=== PATIENT | male | born 1950 | race Caucasian/White ===

== ENCOUNTER 2020-01-05 07:25 | Inpatient (IN) ==
--- NOTE | 2019-12-17 16:31 | PAT Medication Instructions ---
Medication Instructions Date of Service December 17, 2019 Home Medications aspirin [Aspir-81] 81 mg PO HS atorvastatin 80 mg PO PM gabapentin 600 mg PO HS ibuprofen [Advil] 400 mg PO Q6H PRN multivitamin 1 tab PO QPM omeprazole 20 mg PO QAM prednisone 7 mg PO QAM ramipril 5 mg PO QAM tamsulosin 0.8 mg PO HS ASK your surgeon for instructions ibuprofen [Advil] 400 mg PO Q6H PRN ASK your prescriber and surgeon aspirin [Aspir-81] 81 mg PO HS DO NOT take the morning of surgery multivitamin 1 tab PO QPM ramipril 5 mg PO QAM Take morning of surgery With a small sip of water, OTHERWISE NOTHING TO EAT OR DRINK AFTER MIDNIGHT: omeprazole 20 mg PO QAM prednisone 7 mg PO QAM Take evening before surgery atorvastatin 80 mg PO PM gabapentin 600 mg PO HS multivitamin 1 tab PO QPM tamsulosin 0.8 mg PO HS Other Notes If you have any questions please call us at [phone] or [phone] or [phone] or [phone]
--- NOTE | 2019-12-18 11:18 | Anesthesiology Consultation ---
Date of Service December 18, 2019 Assessment & Plan (1) Encounter for pre-operative examination: Chart Review Chart Review: Pending: Refer to Additional Notes / Consult section (PCP and cardio clearances and Covid testing) and Patient seen in Pre Admission Testing Pending PCP (12/21) and cardio (12/28) clearance appointments. Per PAT appt 12/18/19, pt resides in [facility]. [facility] Wears mask and uses precautions. Educated patient to follow up with surgeon's office regarding Covid testing. Educated on importance of self quarantining, social distancing and wearing mask in public both for herself and household contacts. Teaching & Discussion Pre-Anesthesia Teaching/Discussion Notes: Instructed NPO after midnight before surgery,except medications with 15 cc of water. Medication instructions provided according to the [facility] guidelines. History Surgery Operation Date: 01/05/20 12:05 Proposed Procedures p T12-L1 Decompression, T11-L1 Fusion, L1-L4 Possible Hardware Removal, Spinal Cord Monitoring - Albert Alston DO Height/Weight Height: 5 ft 10 in Weight: 98.5 kg Allergies Allergy/AdvReac Type Severity Reaction Status Date / Time morphine Allergy Unknown NAUSEA Verified 12/16/19 15:08 metoprolol AdvReac Unknown LOW HEART Verified 12/16/19 15:08 RATE Medications Home Medications Medication Instructions Recorded Confirmed Last Taken aspirin [Aspir-81] 81 mg PO HS 12/16/19 12/16/19 Unknown atorvastatin 80 mg PO PM 12/16/19 12/16/19 Unknown gabapentin 600 mg PO HS 12/16/19 12/16/19 Unknown ibuprofen [Advil] 400 mg PO Q6H PRN 12/16/19 12/16/19 Unknown multivitamin 1 tab PO QPM 12/16/19 12/16/19 Unknown omeprazole 20 mg PO QAM 12/16/19 12/16/19 Unknown prednisone 7 mg PO QAM 12/16/19 12/16/19 Unknown ramipril 5 mg PO QAM 12/16/19 12/16/19 Unknown tamsulosin 0.8 mg PO HS 12/16/19 12/16/19 Unknown Past Medical History Medical History CAD (coronary artery disease) S/p two ANTONIO to LAD 2002 PTCA to D1 branch in 2002 Chronic back pain TO LOWER BACK Chronic steroid use Enlarged prostate GERD (gastroesophageal reflux disease) CONTROLLED AND STABLE Hiatal hernia Hyperlipidemia Hypertension Kidney stones NO CURRENT ISSUES Myocardial Infarction 04/2003 PMR (polymyalgia rheumatica) DX'D 2014 PREDISONE DAILY- FOLLOWS WITH RHEUM- DOES HAVE PAIN FLARES - INCREASES STEROID PRN Exercise / Class Metabolic Activity II 4-5 Yardwork/Stairs/Walk up hill (ONE FLIGHT STAIRS- NO CHEST PAIN OR SOB) Past Family History Family History Grandmother (Maternal) Family history of diabetes mellitus Aunt No problems noted. Uncle Family history of diabetes mellitus Past Surgical History Surgical History Back pain with history of spinal surgery X 6 INCLUDING METAL IMPLANTS H/O cervical spine surgery H/O knee surgery RIGHT History of cardiac cath 04/2003 MARLO BARBOZA 2 STENTS PLACED History of carpal tunnel release R/L History of colonoscopy History of cystoscopy WITH STENT X 2 History of esophagogastroduodenoscopy (EGD) Nausea and vomiting after administration of anesthetic agent Past Anesthesia History No Hx of Anesthesia Complications (BESIDES PONV) and No Family Hx of Anesthesia Complications History of PONV No Hx of Motion Sickness and History of PONV Social History Smoking Status: Never smoker Do You Dip or Chew Tobacco: No Hx Alcohol Use: Yes Alcohol type: beer Alcohol Intake Frequency Comment: RARELY Hx Substance Use: No Review of Systems Patient denies chest pain, shortness of breath, dyspnea on exertion, cough, wheezing, palpitations. No hx of seizures, stroke, apnea/snoring. No hx of blood clots or blood transfusions Physical Exam Vital Signs VITALS BP 144/87 P 69 TEMP 98.6 SP02 96% RESP 16 Constitutional no acute distress ENMT Mouth: no TMJ clicking Thyromental Distance: > or= 3.5 Finger Breadths (3.5) Mallampati Class: III Denies missing or loose teeth Neck + limited neck extension (mild ) Respiratory normal respiratory effort; no respiratory distress Auscultation: lungs clear to auscultation bilaterally; no wheezes Cardiovascular Rate/Rhythm: regular rate and regular rhythm Heart Sounds: no murmur Vessels: no carotid bruit Musculoskeletal Spine: no pain with cervical ROM Neurologic moves all extremities Psychiatric Orientation: alert Testing Laboratory Results 12/18/19 11:58 12/18/19 11:58 PT 10.9 Seconds (9.0-12.0) 12/18/19 11:58 INR 1.0 (0.9-1.1) 12/18/19 11:58 APTT 26.9 Seconds (21.0-31.0) 12/18/19 11:58 Urine Color Yellow 12/18/19 Unknown Urine Appearance Clear (Clear) 12/18/19 Unknown Urine pH 6.5 (4.5-7.5) 12/18/19 Unknown Ur Specific [place] 1.022 (1.000-1.030) 12/18/19 Unknown Urine Protein Negative (Negative) 12/18/19 Unknown Urine Glucose (UA) Negative (Negative) 12/18/19 Unknown Urine Ketones Negative (Negative) 12/18/19 Unknown Urine Nitrite Negative (Negative) 12/18/19 Unknown Ur Leukocyte Esterase Negative (Negative) 12/18/19 Unknown Blood Type O Positive 12/18/19 11:58 Antibody Screen NEGATIVE 12/18/19 11:58 Electrocardiogram Date: 12/18/19 Findings: + NSR @ (61) Chest X-Ray Date: 12/18/19 Findings: + NAD Left coronary artery stents are noted. Cardiac Catheterization Date: 05/25/03 LM= normal LAD= 30-80% stenosis D1 ostial= 70-80% stenosis Cx= 30% RCA= 20-30% EF= 55%. No MR or . Successful PTCA and stent x 2 to mid/mid distal portion of LAD Successful PTCA of ostial portion of the the first diagonal branch.
[2019-12-18 12:21] LABS: Basophils # (auto) 0.02 K/uL (0-0.2); Basophils % (auto) 0.2 %; Eosinophils # (auto) 0.07 K/uL (0-0.5); Eosinophils % (auto) 0.7 %; Hematocrit (blood only) 42.6 % (42-52); Hemoglobin 14.6 g/dL (14.0-18.0); Immature Granulocytes # (auto) 0.01 K/uL (0.00-0.02); Immature Granulocytes % (auto) 0.1 %; Lymphocytes # (auto) 0.99 K/uL (1.2-3.4); Lymphocytes % (auto) 9.9 %; Mean Corpuscular Hemoglobin 32.4 pg (25-34); Mean Corpuscular Hgb Conc 34.3 g/dL (32-36); Mean Corpuscular Volume 94.7 fL (80-100); Mean Platelet Volume 8.7 fL (7.4-10.4); Monocytes # (auto) 0.82 K/uL (0.11-0.59); Monocytes % (auto) 8.2 %; Neutrophils # (auto) 8.06 K/uL (1.4-6.5); Neutrophils % (auto) 80.9 %; Platelet Count 186 K/uL (130-400); RDW Coefficient of Variation 12.8 % (11.5-14.5); RDW Standard Deviation 44.2 fL (36.4-46.3); White Blood Count 9.97 K/uL (4.8-10.8)
[2019-12-18 12:26] LABS: Appearance Urine Clear (Clear); Bilirubin Urine Negative (Negative); Blood Urine Negative (Negative); Color Urine Yellow; Glucose Urine UA Negative (Negative); Ketones Urine Negative (Negative); Leukocyte Esterase Urine Negative (Negative); Nitrite Urine Negative (Negative); Protein Urine Negative (Negative); Specific Gravity Urine 1.022 (1.000-1.030); Urobilinogen Urine Negative (Negative); pH Urine 6.5 (4.5-7.5)
[2019-12-18 12:30] LABS: Partial Thromboplastin Time 26.9 Seconds (21.0-31.0); Prothrombin Time 10.9 Seconds (9.0-12.0)
--- NOTE | 2019-12-18 12:40 | XRay Report ---
XR chest Pre-admission PA/Lat HISTORY: Preop. COMPARISON: Chest 11/06/2014. FINDINGS: The lungs are clear. Cardiac silhouette is normal in size. No pleural effusions. No pneumot horax. Posterior fusion hardware within the lumbar spine. Left coronary artery stents are noted. IMPRESSION: No acute process. ACT 112: Negative or not required by law. Electronically signed by: Eugenio Sheth M.D. 12/18/2019 12:39 PM
[2019-12-18 15:29] LABS: BUN Creatinine Ratio 19.7 (10-20); Calcium 9.4 mg/dl (8.5-10.1); Est GFR (African American) 88.6; Est GFR (Non-African American) 76.5; Potassium 4.1 mmol/L (3.5-5.1)
--- NOTE | 2019-12-18 22:01 | Electrocardiogram Report ---
Test Reason : Blood Pressure : / mmHG Vent. Rate : 061 BPM Atrial Rate : 061 BPM P-R Int : 166 ms QRS Dur : 100 ms QT Int : 420 ms P-R-T Axes : 060 -11 042 degrees QTc Int : 422 ms Normal sinus rhythm Normal ECG No previous ECGs available Confirmed by Kalpesh Gardiner ([id number]) on 12/18/2019 10:00:33 PM Referred By: Alebrt Alston Confirmed By:Kalpesh Gardiner
[~2020-01-05 07:25] MED LIST: ACETAMINOPHEN 1000 MG/100 ML IV IV ONE; ACETAMINOPHEN 500 MG TAB PO SCH; CEFAZOLIN 2000MG 2,000 MG/15 ML SYR IV SCH; CeleBREX 200 MG CAP PO SCH; GABAPENTIN 300 MG CAP PO SCH; LR 15ML/HR IV SCH
[2020-01-05] MEDS ORDERED: LIDOCAINE HCL 2% 2 ML VIAL/AMP(20MG/ML) INFIL ONE (08:18)
[2020-01-05] MEDS ORDERED: ONDANSETRON INJ 2 MG/ML 2 ML VIAL ONE (08:18)
[2020-01-05] MEDS ORDERED: DEXAMETHASONE SOD INJ 4 MG/ML VIAL ONE (08:18)
[2020-01-05] MEDS ORDERED: fentaNYL citrate 100 MCG/2 ML VIAL ONE (08:18)
[2020-01-05] MEDS ORDERED: PROPOFOL IV EMULSION 10 MG/ML 20 ML VIAL IV ONE (08:18)
[2020-01-05] MEDS ORDERED: ROCURONIUM BROMIDE 10 MG/ML 5 ML VIAL IV ONE (08:18)
[2020-01-05] MEDS ORDERED: ONDANSETRON INJ 2 MG/ML 2 ML VIAL IV PRN ×2 (08:31→13:55)
[2020-01-05] MEDS ORDERED: fentaNYL citrate 100 MCG/2 ML VIAL IV PRN (08:31)
[2020-01-05] MEDS ORDERED: ePHEDrine sulfate 50 MG/ML AMP IV PRN (08:31)
[2020-01-05] MEDS ORDERED: HYDROmorphone INJ 1 MG/ML SYRINGE IV PRN ×2 (08:31→13:55)
[2020-01-05] MEDS ORDERED: ATROPINE SULFATE 0.1 MG/ML 10ML SYR IV PRN (08:31)
[2020-01-05] MEDS ORDERED: SCOPOLAMINE 1.5 MG TDSY TD ONE ×2 (08:54→08:59)
--- NOTE | 2020-01-05 08:56 | History & Physical Bridge Note ---
Date of Service January 05, 2020 History & Physical Bridge Note I have examined the patient, reviewed the History & Physical and in the interval since the performance of the History & Physical I have noted the following changes of clinical significance: no changes noted
--- NOTE | 2020-01-05 08:57 | History & Physical Report ---
Date of Service January 05, 2020 Assessment & Plan (1) Lumbar stenosis with neurogenic claudication: T12-L1 decompression, T11-L1 fusion, L1-L4 possible hardware removal Present on Admission?: Yes History of Present Illness Chief Complaint: Back and by leg pain Primary Care Provider: Td Banks MD This is a 6-year-old male who presents with marked decline with back and leg symptoms. After failing extensive course of nonoperative care is here for surgical invention. Allergies Allergy/AdvReac Type Severity Reaction Status Date / Time morphine Allergy Unknown NAUSEA Verified 01/05/20 08:09 metoprolol AdvReac Unknown LOW HEART Verified 01/05/20 08:09 RATE Home Medications Home Medications Medication Instructions Recorded Confirmed Type aspirin [Aspir-81] 81 mg PO HS 12/16/19 01/05/20 History atorvastatin 80 mg PO PM 12/16/19 01/05/20 History gabapentin 600 mg PO HS 12/16/19 01/05/20 History ibuprofen [Advil] 400 mg PO Q6H PRN 12/16/19 01/05/20 History multivitamin 1 tab PO QPM 12/16/19 01/05/20 History omeprazole 20 mg PO QAM 12/16/19 01/05/20 History prednisone 7 mg PO QAM 12/16/19 01/05/20 History ramipril 5 mg PO QAM 12/16/19 01/05/20 History tamsulosin 0.8 mg PO HS 12/16/19 01/05/20 History Past Med/Surg History Medical History CAD (coronary artery disease) S/p two ANTONIO to LAD 2002 PTCA to D1 branch in 2002 Chronic back pain TO LOWER BACK Chronic steroid use Enlarged prostate GERD (gastroesophageal reflux disease) CONTROLLED AND STABLE Hiatal hernia Hyperlipidemia Hypertension Kidney stones NO CURRENT ISSUES Myocardial Infarction 04/2003 PMR (polymyalgia rheumatica) DX'D 2014 PREDISONE DAILY- FOLLOWS WITH RHEUM- DOES HAVE PAIN FLARES - INCREASES STEROID PRN Surgical History Back pain with history of spinal surgery X 6 INCLUDING METAL IMPLANTS H/O cervical spine surgery H/O knee surgery RIGHT History of cardiac cath 04/2003 MARLO BARBOZA 2 STENTS PLACED History of carpal tunnel release R/L History of colonoscopy History of cystoscopy WITH STENT X 2 History of esophagogastroduodenoscopy (EGD) Nausea and vomiting after administration of anesthetic agent Family History Grandmother (Maternal) Family history of diabetes mellitus Aunt No problems noted. Uncle Family history of diabetes mellitus Social History Preferred Language: Lao Communication Ability: Effective Thai Masseur Required: No Beliefs That Will Affect Care: None Current Living Situation: Spouse Other Information That Helps Us Care for You: No Feels Safe at Home: Yes Safety Concerns: Feels Safe At This Time Smoking Status: Never smoker Do You Dip or Chew Tobacco: No ; Second Hand Exposure: No ; Hx Alcohol Use: Yes Alcohol type: beer Hx Substance Use: No Physical Exam Physical Exam: Patient is alert and oriented neurologically intact. Heart regular rate and rhythm. Lungs clear to auscultation Results & Data Vital Signs (Past 12 Hours) Vital Signs Temp Pulse Resp BP Pulse Ox 01/05/20 08:28 36.8 C 52 L 20 134/82 96
[2020-01-05] MEDS ORDERED: BUPIVACAINE/EPINEPHRINE 0.25% 1:200,000 30 ML VIAL ONE (09:02)
[2020-01-05] MEDS ORDERED: BACITRACIN INJ 50,000 UNIT VIAL ONE (09:02)
[2020-01-05] MEDS ORDERED: HYDROCORTISONE SOD SUCCINATE 100 MG/2 ML VIAL ONE (09:47)
[2020-01-05] MEDS ORDERED: FLOSEAL HEMOSTATIC MATRIX 10ML TOP ONE (10:17)
[2020-01-05] MEDS ORDERED: HYDROmorphone INJ 2 MG/ML SYR/VIAL ONE (11:04)
[2020-01-05] MEDS ORDERED: ALBUMIN HUMAN 5% 12.5 GM/250 ML VIAL IV ONE (11:12)
--- NOTE | 2020-01-05 12:27 | Operative Report ---
Post Operative Report Pre & Post Diagnosis Operation Date: 01/05/20 09:05 Pre-Op Diagnosis: Thoracic spinal stenosis Post-Op Diagnosis: Thoracic spinal stenosis I identified the patient and participated in the time-out.: Yes Procedure Operation Date: 01/05/20 09:05 Actual Procedures #1 removal of posterior segmental instrumentation L1-L4. #2 exploration of fusion L1-L4. #3 decompression with bilateral medial facetectomies and foraminotomies T11-T12 and T12-L1. #4 posterior spinal fusion T10-L1. #5 placed a posterior segmental instrumentation from T10-L4. #6 interbody fusion T12-L1. #7 placement peek cage 8 x 26 mm at T12-L1. #8 placement locally harvested morselized autograft in the posterior lateral gutters. #9 placement infuse collagen sponge, master graft in the posterior lateral gutters and ostial amp and interbody space. Surgeon Albert Alston, DO Product Marketing Specialist Lissette Partida Estimated Blood Loss 950 Findings See Below The patient is 5 foot 10 weighing over 95 kg with a BMI in excess of 30. This combined with an EBL greater than 950 cc created significant technical difficulty adding at least 25% increase to the operative time. Specimens None Indications This is a 69-year-old male the presents with above-mentioned diagnosis after failing a course of nonoperative care is here for the above-mentioned procedure. Description of Procedure Patient was met with identified informed consent obtained. Patient was then taken to the operative suite underwent intubation placed in a prone position on the Oleg table on top of the Xavier frame. All bony prominences well-padded eyes inspected to ensure no external pressure placed upon them. This point the thoracolumbar spine was prepped and draped in normal sterile fashion. Sharp dissection with the assistance of Bovie cautery was performed down to and exposing the lamina and transverse processes of T10-T11 T12-L1 and the instrumentation L1 down to L4. I then proceeded move the hardware bilaterally at L1-L4 exploring the fusion mass noting it to be intact. And then performed a complete laminectomy of T10 12 and T11 from a caudal cephalad fashion including medial facetectomies and foraminotomies addressing severe spinal stenosis. Pedicle screws were then placed in [id number] L1-L2 and L4 bilaterally with assistance of fluoroscopy and appropriately sized umesh placed. By way of a transforaminal approach on the right a complete discectomy of T8 12 L1 was performed endplates curetted to subcortical bleeding bone and a 8 x 26 mm peek cage filled with osteo-bone graft tapped in position. The rods were then locked into final position bilaterally. The transverse processes of T10-T11 T12-L1 and L2 were burred to subcortical bleeding bone. Infuse collagen sponge master graft local autograft was placed in the posterior lateral gutters. 15 round JACOB drain inserted. The incision was then closed with 1 Vicryl the fascia 2-0 Vicryl subcutaneously and 4 Monocryl for final skin closure. Steri-Strip sterile dressings placed. Patient will continue PACU stable condition. Please note spinal cord monitoring was utilized that the procedure no changes noted. Lastly Lissette Partida was present at the entire procedure involved the patient positioning complex portions of the surgery and final skin closure. I attest to the content of the Intraoperative Record and any orders documented therein. Any exceptions are noted below.
--- NOTE | 2020-01-05 13:09 | Fluoroscopy Report ---
INTRAOPERATIVE RADIOGRAPHS CLINICAL HISTORY: Thoracolumbar spinal fusion. Fluoroscopy time: 32 seconds. FINDINGS: 6 spot fluoroscopic views of the lower thoracic and lumbar spine are presented. There is po stoperative change from extensive laminectomy and posterior fusion throughout the imaged thoracolumba r spine. Interpedicular screws are present at several levels. The orthopedic hardware appears intact. IMPRESSION: Intraoperative images from thoracolumbar spinal fusion as above. Electronically signed by: Aneglo Fan M.D. 01/05/2020 1:08 PM
[2020-01-05 13:21] LABS: Basophils # (auto) 0.01 K/uL (0-0.2); Basophils % (auto) 0.1 %; Hemoglobin 11.6 g/dL (14.0-18.0); Immature Granulocytes # (auto) 0.04 K/uL (0.00-0.02); Immature Granulocytes % (auto) 0.6 %; Lymphocytes # (auto) 0.54 K/uL (1.2-3.4); Lymphocytes % (auto) 7.6 %; Mean Corpuscular Hemoglobin 31.7 pg (25-34); Mean Corpuscular Volume 95.6 fL (80-100); Mean Platelet Volume 8.5 fL (7.4-10.4); Monocytes # (auto) 0.14 K/uL (0.11-0.59); Neutrophils # (auto) 6.34 K/uL (1.4-6.5); Neutrophils % (auto) 89.7 %; Platelet Count 145 K/uL (130-400); RDW Coefficient of Variation 12.8 % (11.5-14.5); RDW Standard Deviation 44.5 fL (36.4-46.3); Red Blood Count 3.66 M/uL (4.7-6.1); White Blood Count 7.07 K/uL (4.8-10.8)
[2020-01-05 13:26] LABS: Mean Corpuscular Hgb Conc 33.1 g/dL (32-36)
--- NOTE | 2020-01-05 13:29 | Anesthesiology Progress Note ---
Date of Service January 05, 2020 Anesthesia Post Procedure Vital Signs Vital Signs: Temp Pulse Pulse Resp BP Pulse Ox 01/05/20 13:10 60 13 142/65 H 98 01/05/20 13:00 67 14 141/80 H 98 01/05/20 12:50 36.7 C 72 16 150/89 H 97 01/05/20 08:28 36.8 C 52 L 20 134/82 96 Transfer of Care Handoff Completed per policy Notes Mental Status: alert / awake / arousable and participated in evaluation Patient Amnestic to Procedure: Yes Nausea / Vomiting: adequately controlled Pain: adequately controlled Airway Patency, RR, SpO2: stable & adequate BP & HR: stable & adequate Hydration State: stable & adequate Anesthetic Complications: no major complications apparent and Pt Satisfied with anesthetic care
[2020-01-05] MEDS ORDERED: DO NOT ADMINISTER PNEUMOCOCCAL VACCINE PRN (13:55)
[2020-01-05] MEDS ORDERED: bisacodyL 10 MG SUPP PR PRN (13:55)
[2020-01-05] MEDS ORDERED: ACETAMINOPHEN 500 MG TAB PO PRN (13:55)
[2020-01-05] MEDS ORDERED: LORazepam 0.5 MG TAB PO PRN (13:55)
[2020-01-05] MEDS ORDERED: PROMETHAZINE HCL 12.5 MG in SODIUM CHLORIDE 0.9% 50 ML IV PRN (13:55)
[2020-01-05] MEDS ORDERED: NALOXONE HCL 0.4 MG/1 ML VIAL/CARP IV PRN (13:55)
[2020-01-05] MEDS ORDERED: ONDANSETRON 4 MG OD TAB PO PRN (13:55)
[2020-01-05] MEDS ORDERED: OXYCODONE HCL IR 5 MG TAB (IMMEDIATE RELEASE) PO PRN (13:55)
[2020-01-05] MEDS ORDERED: FAMOTIDINE 20 MG TAB PO PRN (13:55)
[2020-01-05] MEDS ORDERED: SOD PHOSPHATE/SOD BIPHOSPHATE ENEMA 132 ML BTL PR PRN (13:55)
[2020-01-05] MEDS ORDERED: METOCLOPRAMIDE HCL INJ 5 MG/ML 2 ML VIAL IV PRN (13:55)
[2020-01-05] MEDS ORDERED: ALUMINUM/MAGNESIUM SUSP 30 ML UDC PO PRN (13:55)
[2020-01-05] MEDS ORDERED: HYDROmorphone INJ 0.5 MG/0.5 ML SYR IV PRN (13:55)
[2020-01-05] MEDS ORDERED: LORazepam 0.5 MG/1 ML VIAL IV PRN (13:55)
[2020-01-05] MEDS ORDERED: MAGNESIUM HYDROXIDE SUSP 30 ML UDC PO PRN (13:55)
[2020-01-05] MEDS ORDERED: DO NOT ADMINISTER FLU VACCINE PRN (13:55)
[2020-01-05] MEDS ORDERED: ACETAMINOPHEN 1,000 MG/100 ML VIAL IV PRN (13:55)
[2020-01-05] MEDS ORDERED: SODIUM CHLORIDE 0.9% 1000ML 1,000 ML IV SCH ×2 (14:25→22:00)
--- NOTE | 2020-01-05 15:32 | Consultation ---
Date of Consultation January 05, 2020 Assessment & Plan (1) Lumbar stenosis with neurogenic claudication: Status post T10-L1 decompression, T10-L4 fusion by Dr. Alston POD #0 EBL 950ml; JACOB Drain 210 ml tolerated procedure well Pain/wound/antiemetics management per orthopedics Activity and therapy as directed by Ortho Encourage incentive spirometry SCD/TEDS (2) Acute blood loss anemia: Preop H&H 14.6 and 42.6 EBL 950 mL; JACOB drain 210 mL Postoperative hemoglobin 11.6 and 35.0 Monitor H&H closely, already type and crossed transfuse hemoglobin < 8 (3) CAD (coronary artery disease): History of PCI with stent LAD x2 in 2002 Continue ASA, statin, LITO no chest pain/sob (4) PMR (polymyalgia rheumatica): Continue chronic prednisone 5 mg daily Did receive stress dose steroids preoperatively 100 mg of Solu-Cortef - discussed with anesthesia Dr. Miller (5) Hypertension: Blood pressure stable, continue LITO inhibitor (6) Hyperlipidemia: Continue statin (7) GERD (gastroesophageal reflux disease): Continue PPI (8) DVT prophylaxis: Per primary Follow-up: PCP Dr. Banks was upon discharge Pt was seen and examined in collaboration with Dr. Recio, please see addendum Thank you for this consultation. We will follow the patient with you during their hospital stay. You can reach a member of the [facility] Hospitalist Team 15/01 via pager @ [phone]. Supervising Physician Co-Signing Physician Notes I, Dr. Curly Recio, have seen and examined the patient with physician hair assistant and would like to comment that On PHYSICAL exam: General: no acute distress Lungs: on room air, normal respiratory effort Heart: regular heart rate Abdomen: soft, nontender, positive bowel sounds Back: presence of JACOB drain with blood Extremities: able to wiggle the toes bilaterally ASSESSMENT AND PLAN -This is a patient of orthopedics Dr. Alston and is status post spinal surgery for diagnosis of Thoracic spinal stenosis (#1 removal of posterior segmental instrumentation L1-L4. #2 exploration of fusion L1-L4. #3 decompression with bilateral medial facetectomies and foraminotomies T11-T12 and T12-L1. #4 posterior spinal fusion T10-L1. #5 placed a posterior segmental instrumentation from T10-L4. #6 interbody fusion T12-L1. #7 placement peek cage 8 x 26 mm at T12-L1. #8 placement locally harvested morselized autograft in the posterior lateral gutters. #9 placement infuse collagen sponge, master graft in the posterior lateral gutters and ostial amp and interbody space.) -monitor acute blood loss anemia post-operatively because of Estimated Blood Loss greater than 950 cc -post-op Hgb 11.6 patient on IV fluids, continue for now and can consider monitoring off IV fluids at night -continue galindo -will need PT/OT assessments -defer to general surgery on management of JACOB drain -agree with assessment and plan as documented by physician hair assistant History of Present Illness Requesting Physician: Dr. Alston Reason for Consultation: Postop medical management Attending Physician: Albert Alston, History of Present Illness This is a 69-year-old male who has significant PMH of CAD with history of angioplasty to LAD in 2002, HTN, HLD, PMR on chronic steroid, BPH, GERD, gout, history of pseudomembranous colitis who presents to [facility] for elective thoracolumbar surgery by Dr. Alston. We have been consulted for medical management. Patient underwent T10 L1 decompression and T10 L4 fusion. He tolerated the procedure well. Overall feels, "tired," and dizzy. He denies feeling presyncopal, lightheaded, headache, change in vision/hearing, chest pain, shortness breath, cough, nausea, vomiting, abdominal pain. He denies any incisional back pain or radicular symptoms. He does have Galindo catheter in place. He tolerated clear liquid diet for lunch. Offers no acute concerns. Discussed with nursing staff and anesthesia and was confirmed the patient did receive Solu-Cortef 100 mg preoperatively due to steroid dependence. From a cardiac standpoint is CAD with prior stents PCI is stable. Seen and evaluated by cardiology on 12/29/2019. Hypertension well-controlled on ramipril. He is on high-dose atorvastatin for his hyperlipidemia. He does have PMR which he takes for 5 mg of prednisone daily. He follows with [facility] rheumatology. Recently had been on 7-1/2 mg daily, but is now down to 5 mg daily. He did take prednisone 5 mg this morning. Allergies Allergy/AdvReac Type Severity Reaction Status Date / Time morphine Allergy Unknown NAUSEA Verified 01/05/20 08:09 metoprolol AdvReac Unknown LOW HEART Verified 01/05/20 08:09 RATE Home Medications Home Medications Medication Instructions Recorded Confirmed Type aspirin [Aspir-81] 81 mg PO HS 12/16/19 01/05/20 History atorvastatin 80 mg PO PM 12/16/19 01/05/20 History gabapentin 600 mg PO HS 12/16/19 01/05/20 History ibuprofen [Advil] 400 mg PO Q6H PRN 12/16/19 01/05/20 History multivitamin 1 tab PO QPM 12/16/19 01/05/20 History omeprazole 20 mg PO QAM 12/16/19 01/05/20 History ramipril 5 mg PO QAM 12/16/19 01/05/20 History tamsulosin 0.8 mg PO HS 12/16/19 01/05/20 History prednisone 5 mg PO DAILY 01/05/20 01/05/20 History Patient History Medical History CAD (coronary artery disease) S/p two ANTONIO to LAD 2002 PTCA to D1 branch in 2002 Chronic back pain TO LOWER BACK Chronic steroid use Enlarged prostate GERD (gastroesophageal reflux disease) CONTROLLED AND STABLE Hiatal hernia Hyperlipidemia Hypertension Kidney stones NO CURRENT ISSUES Myocardial Infarction 04/2003 PMR (polymyalgia rheumatica) DX'D 2014 PREDISONE DAILY- FOLLOWS WITH RHEUM- DOES HAVE PAIN FLARES - INCREASES STEROID PRN Surgical History Back pain with history of spinal surgery X 6 INCLUDING METAL IMPLANTS H/O cervical spine surgery H/O knee surgery RIGHT History of cardiac cath 04/2003 MARLO BARBOZA 2 STENTS PLACED History of carpal tunnel release R/L History of colonoscopy History of cystoscopy WITH STENT X 2 History of esophagogastroduodenoscopy (EGD) Nausea and vomiting after administration of anesthetic agent Family History (Updated 01/05/20 @ 15:44 by Mecca Alanis PA-C) Grandmother (Maternal) Family history of diabetes mellitus Uncle Family history of diabetes mellitus Father Heart disease, Onset Age: 79 Mother Alzheimer disease Brother Heart disease, Onset Age: 59 Social History (Updated 01/05/20 @ 15:45 by Mecca Alanis PA-C) Preferred Language: [place]ese Communication Ability: Effective Disaster Recovery Specialist Required: No Beliefs That Will Affect Care: None Current Living Situation: Spouse Other Information That Helps Us Care for You: No Feels Safe at Home: Yes Safety Concerns: Feels Safe At This Time Smoking Status: Former smoker Do You Dip or Chew Tobacco: No ; Number of Years Since Quit: 35 ; Second Hand Exposure: No ; Hx Alcohol Use: No Hx Substance Use: No Review of Systems Review of Systems: All systems reviewed & are unremarkable except as noted in HPI & below Physical Exam Physical Exam: Constitutional: WD/WN, vitals as above, NAD, sitting up in bed, pleasant, conversing easily Head: Normocephalic, Atraumatic Eyes: PERRL, conjunctivae normal, anicteric sclerae ENMT: external ear and nose normal, oropharynx normal Neck: trachea midline, no thyromegaly normal visual inspection Respiratory: normal respiratory effort, lungs clear to auscultation, no wheeze, rales, rhonchi. Normal insp/exp effort, no accessory muscle use Cardiovascular: RRR, no murmur, no edema Vessels: no JVD or carotid bruit Chest: normal inspection of chest Abdomen: normal bowel sounds, soft, nontender, no hepatosplenomegaly Musculoskeletal: no cyanosis or clubbing, active range of motion to extremities x4, bilateral upper extremities 5/5, lumbar dressing CDI, JACOB drain with serosanguineous drainage, NVI distally Skin: no rashes, warm and dry normal turgor Neurologic: PERRL, EOMI, accommodation nl, no face palsy, no dysarthria CN's II-XI intact bilaterally and moves all extremities Psychiatric: A+Ox3, euthymic affect Lymphatic: no cervical or axillary lymphadenopathy : Galindo catheter in place draining clear yellow urine Results & Data ([facility]) Vital Signs (Past 12 Hours) Vital Signs Temp Pulse Pulse Resp BP BP Pulse Ox 01/05/20 14:57 36.4 C L 75 17 132/84 93 01/05/20 14:25 36.4 C L 72 16 136/83 97 01/05/20 13:50 36.5 C 62 16 143/79 H 100 01/05/20 13:30 58 L 12 129/76 97 01/05/20 13:20 36.4 C L 63 12 136/72 98 01/05/20 13:10 60 13 142/65 H 98 01/05/20 13:00 67 14 141/80 H 98 01/05/20 12:50 36.7 C 72 16 150/89 H 97 01/05/20 08:28 36.8 C 52 L 20 134/82 96 Laboratory Results Short CBC 01/05/20 Range/Units 13:10 WBC 7.07 (4.8-10.8) K/uL Hgb 11.6 L (14.0-18.0) g/dL Hct 35.0 L (42-52) % Plt Count 145 (130-400) K/uL Preoperative lab work on 12/18/2019 WBC 9.97, H&H 14.6 and 42.6, platelet 186 BUN 20, creatinine 1.00, sodium 4.1 Urine negative Diagnostic Findings CXR: IMPRESSION: No acute process. Lumbar Spine Xray: IMPRESSION: Intraoperative images from thoracolumbar spinal fusion as above. Medications Administered Acetaminophen (Tylenol) 1,000 mg PO PREOP CORTES Stop: 01/05/20 18:00 Last Admin: 01/05/20 08:26 Dose: 1,000 mg Documented by: [id number] Celecoxib (Celebrex) 200 mg PO PREOP CORTES Stop: 01/05/20 18:00 Last Admin: 01/05/20 08:26 Dose: 200 mg Documented by: [id number] Gabapentin (Neurontin) 300 mg PO PREOP CORTES Stop: 01/05/20 18:00 Last Admin: 01/05/20 08:26 Dose: 300 mg Documented by: [id number] Lactated Ringer's (Lr) 1,000 mls @ 15 mls/hr IV .Q24H CORTES Stop: 01/06/20 05:59 Last Infusion: 01/05/20 09:29 Dose: 0 mls/hr Documented by: [id number] Admin: 01/05/20 08:25 Dose: 15 mls/hr Documented by: [id number] Cefazolin Sodium (Ancef 2000mg) 2,000 mg in 15 mls @ 3.75 mls/min IV PREOP CORTES; Protocol Stop: 01/05/20 18:00 Last Admin: 01/05/20 09:29 Dose: 3.75 mls/min Documented by: [id number] Sodium Chloride (Nss 1000ml) 1,000 mls @ 150 mls/hr IV .Q6H40M CORTES Stop: 01/05/20 21:04 Last Admin: 01/05/20 14:38 Dose: 150 mls/hr Documented by: [id number] Discontinued Medications Bacitracin (Bacitracin) Confirm Administered Dose 50,000 units .ROUTE .STK-MED ONE Stop: 01/05/20 09:03 Last Admin: 01/05/20 10:18 Dose: 50,000 units Documented by: [id number] Bupivacaine HCl/Epinephrine Bitart (Bupivacaine 0.25%-Epi [id number]) Confirm Administered Dose 30 ml .ROUTE .STK-MED ONE Stop: 01/05/20 09:03 Last Admin: 01/05/20 10:18 Dose: 30 ml Documented by: [id number] Miscellaneous (Floseal Hemostatic Matrix 10ml) 10 ml TOP ONCE ONE Stop: 01/05/20 10:18 Last Admin: 01/05/20 12:30 Dose: 40 ml Documented by: [id number] Scopolamine (Transderm-Scop) 1.5 mg TD ONE ONE Stop: 01/05/20 08:55 Last Admin: 01/05/20 09:01 Dose: 1.5 mg Documented by: [id number] Scopolamine (Transderm-Scop) Confirm Administered Dose 1.5 mg TD .STK-MED ONE Stop: 01/05/20 09:00 Last Admin: 01/05/20 14:32 Dose: Not Given Documented by: [id number] ECG Rate (beats per minute): 61 Rhythm: normal sinus
[2020-01-05] MEDS: TRAMADOL HCL 50 MG TABLET PO PRN (17:33)
[2020-01-05] MEDS: CEFAZOLIN 2000MG 2,000 MG/15 ML SYR IV SCH (17:34)
[2020-01-05] MEDS: CHECK SCOPOLAMINE PATCH PLACEMENT SCH (17:34)
[2020-01-05] MEDS: ATORVASTATIN 40 MG TAB PO SCH (21:20)
[2020-01-05] MEDS: DOCUSATE SODIUM/SENNA 50/8.6MG TAB PO SCH (21:21)
[2020-01-05] MEDS: MULTIVITAMIN TAB PO SCH (21:21)
[2020-01-05] MEDS: ASPIRIN 81 MG ECTAB PO SCH (21:21)
[2020-01-05] MEDS: TAMSULOSIN HCL 0.4 MG CAP PO SCH (21:21)
[2020-01-05] MEDS: GABAPENTIN 600 MG TAB PO SCH (21:21)
[2020-01-06] MEDS: CEFAZOLIN 2000MG 2,000 MG/15 ML SYR IV SCH (01:17)
[2020-01-06] MEDS: CHECK SCOPOLAMINE PATCH PLACEMENT SCH ×4 (01:17→23:40)
[2020-01-06] MEDS: POLYETHYLENE (MIRALAX) 17 GM PACK PO SCH ×4 (04:51→23:40)
[2020-01-06] MEDS: TRAMADOL HCL 50 MG TABLET PO PRN (04:53)
[2020-01-06 05:04] LABS: Basophils # (auto) 0.01 K/uL (0-0.2); Basophils % (auto) 0.1 %; Eosinophils # (auto) 0.08 K/uL (0-0.5); Eosinophils % (auto) 0.9 %; Hematocrit (blood only) 29.5 % (42-52); Immature Granulocytes # (auto) 0.02 K/uL (0.00-0.02); Immature Granulocytes % (auto) 0.2 %; Lymphocytes # (auto) 1.12 K/uL (1.2-3.4); Mean Corpuscular Hemoglobin 32.5 pg (25-34); Mean Corpuscular Hgb Conc 33.9 g/dL (32-36); Mean Corpuscular Volume 95.8 fL (80-100); Mean Platelet Volume 8.1 fL (7.4-10.4); Monocytes # (auto) 0.92 K/uL (0.11-0.59); Monocytes % (auto) 10.7 %; Neutrophils # (auto) 6.46 K/uL (1.4-6.5); Neutrophils % (auto) 75.1 %; Platelet Count 139 K/uL (130-400); RDW Coefficient of Variation 12.8 % (11.5-14.5); RDW Standard Deviation 44.6 fL (36.4-46.3); Red Blood Count 3.08 M/uL (4.7-6.1); White Blood Count 8.61 K/uL (4.8-10.8)
[2020-01-06 05:36] LABS: Calcium 7.9 mg/dl (8.5-10.1); Creatinine Clr Calc Pharmacy 102.1 ml/min; Est GFR (Non-African American) 91.5; Potassium 3.9 mmol/L (3.5-5.1)
[2020-01-06] MEDS: ENALAPRIL MALEATE 10 MG TAB PO SCH (08:17)
[2020-01-06] MEDS: PANTOprazole 40 MG TAB PO SCH (08:17)
--- NOTE | 2020-01-06 08:25 | Orthopedic Progress Note ---
Date of Service January 06, 2020 Assessment & Plan (1) Lumbar stenosis with neurogenic claudication: At this time we will continue physical therapy advance his bowel regimen anticipate discharge home in the next few days. Present on Admission?: Yes Admission and Anticipated Discharge Date Admission Date: January 05, 2020 Subjective Back pain controlled leg symptoms markedly improved. Physical Exam Physical Exam: Patient is good strength testing appears comfortable. Results & Data ([facility]) Vital Signs (Past 12 Hours) Vital Signs Temp Pulse Resp BP Pulse Ox 01/06/20 06:52 36.4 C L 59 L 16 117/62 94 01/06/20 03:19 36.4 C L 63 16 134/81 93 01/05/20 23:48 36.3 C L 64 16 115/68 97 01/05/20 21:28 69 103/66
[2020-01-06] MEDS ORDERED: predniSONE 1 MG TAB PO SCH (09:00)
--- NOTE | 2020-01-06 09:01 | Hospitalist Progress Note ---
Date of Service January 06, 2020 Assessment & Plan (1) Lumbar stenosis with neurogenic claudication: -This is a patient of orthopedics Dr. Alston and is status post spinal surgery for diagnosis of Thoracic spinal stenosis; Status post T10-L1 decompression, T10-L4 fusion by Dr. Alston on 01/05/2020 (#1 removal of posterior segmental instrumentation L1-L4. #2 exploration of fusion L1-L4. #3 decompression with bilateral medial facetectomies and foraminotomies T11-T12 and T12-L1. #4 posterior spinal fusion T10-L1. #5 placed a posterior segmental instrumentation from T10-L4. #6 interbody fusion T12-L1. #7 placement peek cage 8 x 26 mm at T12-L1. #8 placement locally harvested morselized autograft in the posterior lateral gutters. #9 placement infuse collagen sponge, master graft in the posterior lateral gutters and ostial amp and interbody space.) -monitor acute blood loss anemia post-operatively because of Estimated Blood Loss greater than 950 cc -post-op Hemoglobin 11.6 on 01/05/2020, patient given IV fluids -will need PT/OT assessments -defer to general surgery on management of JACOB drain -01/06/2020: Patient seen and examined in the AM eating the breakfast. Has JACOB drain to the back. He has the galindo remaining. He is awaiting to be seen by PT/OT. Breathing on room air, he reports no dizziness, no headache, no shortness of breath, no chest pain, no abdominal pain. he reports he does not feel back discomfort when sitting upright and being still. some discomfort of the back with motion. no bowel movement as of yet since the back surgery -Hemoglobin on 01/06/2020 is 10, asymptomatic, check CBC on 01/07/2020 (2) Acute blood loss anemia: management as above (3) CAD (coronary artery disease): History of PCI with stent LAD x2 in 2002 Continue ASA, statin, LITO (4) PMR (polymyalgia rheumatica): - he received stress dose steroids preoperatively 100 mg of Solu-Cortef - Continue chronic prednisone 5 mg daily (5) Hypertension: continue LITO inhibitor (6) Hyperlipidemia: Continue statin (7) GERD (gastroesophageal reflux disease): Continue PPI (8) DVT prophylaxis: Per primary Follow-up: PCP Dr. Banks Admission and Anticipated Discharge Date Admission Date: January 05, 2020 Subjective Patient seen and examined in the AM eating the breakfast. Has JACOB drain to the back. He has the galindo remaining. He is awaiting to be seen by PT/OT. Breathing on room air, he reports no dizziness, no headache, no shortness of breath, no chest pain, no abdominal pain. he reports he does not feel back discomfort when sitting upright and being still. some discomfort of the back with motion. no bowel movement as of yet since the back surgery Review of Systems Review of Systems: All systems reviewed & are unremarkable except as noted in Subjective Physical Exam Constitutional: comfortable Eyes: PERRL, conjunctivae normal, anicteric sclerae EOM intact bilaterally ENMT: external ear and nose normal, oropharynx normal Neck: trachea midline, no thyromegaly normal visual inspection Respiratory: normal respiratory effort, lungs clear to auscultation Cardiovascular: Rate/Rhythm: + bradycardic Gastrointestinal (Abdomen): normal bowel sounds, soft, nontender, no hepatosplenomegaly Musculoskeletal: Head/Neck/Chest: normocephalic and head atraumatic Neurologic: PERRL, EOMI, accommodation nl, no face palsy, no dysarthria CN's II-XI intact bilaterally Psychiatric: A+Ox3, euthymic affect Genitourinary: galindo Results & Data Results & Data ([facility]) Vital Signs (Past 12 Hours) Vital Signs Temp Pulse Resp BP Pulse Ox 01/06/20 06:52 36.4 C L 59 L 16 117/62 94 01/06/20 03:19 36.4 C L 63 16 134/81 93 01/05/20 23:48 36.3 C L 64 16 115/68 97 01/05/20 21:28 69 103/66
[2020-01-06] MEDS: DEXAMETHASONE SOD PHOSPHATE 8 MG in SYRINGE 0 ML IV SCH (09:40)
[2020-01-06] MEDS: DOCUSATE SODIUM/SENNA 50/8.6MG TAB PO SCH (20:44)
[2020-01-06] MEDS: MULTIVITAMIN TAB PO SCH (20:44)
[2020-01-06] MEDS: ATORVASTATIN 40 MG TAB PO SCH (20:44)
[2020-01-06] MEDS: GABAPENTIN 600 MG TAB PO SCH (20:44)
[2020-01-06] MEDS: TAMSULOSIN HCL 0.4 MG CAP PO SCH (20:44)
[2020-01-06] MEDS: ASPIRIN 81 MG ECTAB PO SCH (20:45)
[2020-01-07] MEDS: POLYETHYLENE (MIRALAX) 17 GM PACK PO SCH ×2 (06:40→11:37)
[2020-01-07 07:06] LABS: Basophils # (auto) 0.01 K/uL (0-0.2); Basophils % (auto) 0.1 %; Eosinophils # (auto) 0.09 K/uL (0-0.5); Eosinophils % (auto) 0.8 %; Hematocrit (blood only) 30.1 % (42-52); Hemoglobin 10.1 g/dL (14.0-18.0); Immature Granulocytes # (auto) 0.03 K/uL (0.00-0.02); Immature Granulocytes % (auto) 0.3 %; Lymphocytes # (auto) 1.24 K/uL (1.2-3.4); Mean Corpuscular Hemoglobin 32.1 pg (25-34); Mean Corpuscular Hgb Conc 33.6 g/dL (32-36); Mean Corpuscular Volume 95.6 fL (80-100); Mean Platelet Volume 8.7 fL (7.4-10.4); Monocytes # (auto) 1.13 K/uL (0.11-0.59); Monocytes % (auto) 10.1 %; Neutrophils # (auto) 8.74 K/uL (1.4-6.5); Neutrophils % (auto) 77.7 %; Platelet Count 154 K/uL (130-400); RDW Coefficient of Variation 13.1 % (11.5-14.5); RDW Standard Deviation 44.7 fL (36.4-46.3); Red Blood Count 3.15 M/uL (4.7-6.1); White Blood Count 11.24 K/uL (4.8-10.8)
[2020-01-07] MEDS: DEXAMETHASONE SOD PHOSPHATE 8 MG in SYRINGE 0 ML IV SCH (08:11)
[2020-01-07] MEDS: ENALAPRIL MALEATE 10 MG TAB PO SCH (08:12)
[2020-01-07] MEDS: PANTOprazole 40 MG TAB PO SCH (08:12)
[2020-01-07] MEDS: CHECK SCOPOLAMINE PATCH PLACEMENT SCH (08:12)
--- NOTE | 2020-01-07 08:39 | Hospitalist Progress Note ---
Date of Service January 07, 2020 Assessment & Plan (1) Lumbar stenosis with neurogenic claudication: Post op day# 2 S/P removal of posterior segmental instrumentation L1-L4, T10-L1 decompression, T10-L4 fusion by Dr Alston EBL# 950ml, JACOB drain output 320 over past 24 hrs Post op pain controlled pain management per ortho wound management per ortho bowel regimen PT/OT as appropriate DVT prophylaxis per ortho, SCDs incentive spirometry (2) Acute blood loss anemia: Preop H&H 14.6/42.6 EBL 950 mL; Total JACOB drain output 1045 mL Hgb stable at 10 past 2 days Pt asymptomatic (3) CAD (coronary artery disease): History of PCI with stent LAD x2 in 2002 Continue ASA, statin, LITO (4) PMR (polymyalgia rheumatica): Did receive stress dose steroids preoperatively 100 mg of Solu-Cortef - discussed with anesthesia Dr. Miller Continue chronic prednisone 5 mg daily (5) Hypertension: Blood pressure stable Continue LITO inhibitor (6) Hyperlipidemia: Continue statin (7) GERD (gastroesophageal reflux disease): Continue PPI (8) DVT prophylaxis: BRIAN/SCDs per ortho Follow-up: PCP Dr. Banks was upon discharge Pt was seen and care coordinated with Dr Hanna. See addendum Admission and Anticipated Discharge Date Admission Date: January 05, 2020 Supervising Physician Co-Signing Physician Notes Attending Addendum: care coordinated with ZORAIDA Miguel please refer to her notes for full details, I agree with her notes chart reviewed unfortunately, patient already left before I could see and examine him myself Nate Hanna MD Subjective Pt seen and examined. Sitting up in bedside chair. Reports pain controlled. Denies any extremity paresthesias or weakness. Has been able to ambulate in the arzate. Eating and drinking well. Urinating without difficulty. No BM yet. No a bdominal pain. Denies fever/chills, diaphoresis, N/V, WIGGINS, dizziness, syncope, vision changes, neck pain, CP, SOB, cough, choking, weakness, extremity edema, rashes, urinary symptoms. Review of Systems Review of Systems: All systems reviewed & are unremarkable except as noted in HPI & below Physical Exam Physical Exam: General: no distress, WDWN Head: normocephalic, atraumatic Eyes: conjunctiva non-injected, anicteric ENT: normal inspection external ears, nose, mucous membranes moist Neck: supple, trachea midline Lungs: clear, no respiratory distress, no wheezing/rhonchi/rales CV: RRR, no murmur, no pretibial edema Abd: normal BS, soft, non-tender Back: Surgical dressing intact and is dry. JACOB drain in place with serosanguineous drainage Ext: no cyanosis or erythema, no calf tenderness, ROM lower extremities intact, distal pulses intact, sensation to light touch intact Neuro: A&O x 3, no focal deficits noted, normal affect Skin: warm, dry Results & Data Results & Data ([facility]) Vital Signs (Past 12 Hours) Vital Signs Temp Pulse Resp BP Pulse Ox 01/07/20 08:10 36.7 C 61 18 115/74 95 01/06/20 23:45 36.6 C 55 L 18 104/66 94 Laboratory Results Short CBC 01/07/20 Range/Units 06:42 WBC 11.24 H (4.8-10.8) K/uL Hgb 10.1 L (14.0-18.0) g/dL Hct 30.1 L (42-52) % Plt Count 154 (130-400) K/uL
--- NOTE | 2020-01-07 11:34 | Discharge Summary ---
Date of Service January 07, 2020 Admission HPI Per Admitting Provider This is a 6-year-old male who presents with marked decline with back and leg symptoms. After failing extensive course of nonoperative care is here for surgical invention. Principal Diagnosis Lumbar spinal stenosis with neurogenic claudication Discharge Data Allergies Allergy/AdvReac Type Severity Reaction Status Date / Time morphine Allergy Unknown NAUSEA Verified 01/05/20 08:09 metoprolol AdvReac Unknown LOW HEART Verified 01/05/20 08:09 RATE Consultations 01/05/20 13:55 Consult Case Management - Discharge Planning Routine Consult Hospitalist Routine Procedures Performed Operation Date: 01/05/20 09:05 Actual Procedures p T10-L1 Decompression, T10-L4 Fusion, Interbody fusion T12-L1, Spinal Cord Monitoring(Not Applicable) - Albert Alston DO s L1-L4 Hardware Removal, (Not Applicable) - Albert Alston DO Ordered Studies 01/05/20 09:05 FL fluoroscopy <1hr Routine FL lumbar spine 2-3V Routine Hospital Course (1) Lumbar stenosis with neurogenic claudication: Patient underwent thoracolumbar decompression fusion tolerated this well was taken to the orthopedic floor postoperative. Postop day 1 he was up and ambulating. Postop day #2 he continued to progress ambulating halls and tolerating steps. Subsequently discharged home with home health for drain management. Discharge orders and instruction him can be found the chart for further review. Total Time Total Time Spent Total Time Spent (In Minutes): 20 minutes Discharge Plan Discharge Items Patient Disposition: Home - Home Health Services Reason For Visit: Other Intervertebral Disc Degeneration, Thoracolum Discharge Diagnosis: Lumbar spinal stenosis with neurogenic claudication Activity: As commented below Non-emergency contact: Primary Care Provider Call non-emergency contact if: you have any medication questions Follow-up/Referrals: Td Banks MD [Primary Care Provider] - Diet: Regular Addtl Attending Provider Instructions: ACTIVITY RECOMMENDATIONS: SELF CARE INSTRUCTIONS AFTER THORACIC/LUMBAR FUSIONS 1. You may walk to your tolerance. It is good exercise for your legs and back. Expect some back and intermittent leg aches and pains. 2. You may perform "counter-top" level activities (make a sandwich, aj with a project, etc.). 3. No bending or lifting of more than 10 pounds or back twisting of any nature (roll like a log when turning in bed). 4. You may ride in a car for 20-30 minutes at a time. No driving until after your first visit with your doctor. 5. Frequent changes of position and restricting sitting to 30 minutes at a time will help limit the amount of back spasms and stiffness you may experience. 6. You may discontinue the use of ambulatory aids (cane, crutches, etc.) once your strength and confidence allow. 7. You may plant safety engineer the shower and let water strike your incision when you arrive home at least once daily. Do not take a tub bath, sit in a hot tub or go into a swimming pool until after your first recheck in the office. SPECIAL CARE INSTRUCTIONS: VERY IMPORTANT TO READ AND REVIEW A. Your surgical incision has been closed with a cosmetic suture under the skin that will dissolve in about 6 weeks. In 14 days, you can use a pair of clean scissors and cut the suture that is left outside of the skin at the ends of your incision. 1. The small skin tapes can be removed 7 days after surgery if they have not fallen off by that point. 2. You may keep the wound open to air as much as possible to promote healing after post-op day number 5 unless told otherwise by your doctor. 3. If you think the wound looks like it is becoming infected (redness or worsening drainage) and/or you are experiencing fever, chill or worsening back pain and muscle spasms, contact the office so that we may evaluate you as soon as possible. B. Complications are uncommon, but please contact us if you have any signs or symptoms of: 1. wound infection (fever higher than 102.5 degrees F, redness, separation of wound, drainage, or increasing pain from the incision) 2. blood clots in legs (pain, swelling, redness and warmth in legs) 3. urinary tract infection (fever higher than 102.5 degrees F, burning upon urination or increased frequency of urination) 4. nerve problems (inability to walk on your toes or heels, numbness, loss of bowel or bladder control) 5. any other symptoms that concern you C. Please call the office at if you have any concerns or questions about your operation or recovery. D. No smoking! Smoking drastically decreases the chance of a solid fusion. E. Do not take any anti-inflammatory medications (Indocin, Advil, Motrin, Aspirin, Naprosyn, etc.) as these may inhibit the chance of a solid fusion. Tylenol is okay to take for pain. MANAGING PAIN AFTER SPINAL SURGERY 1. Narcotic medication is intended for short-term use and will be provided for surgical pain. Surgical pain usually lasts for a period of 4-6 weeks. Narcotic medication includes Percocet, Vicodin, Darvocet, Tylenol #3 or Lortab. 2. Longer-term pain is more appropriately treated with non-narcotic medication such as Tylenol ES. 3. Muscle spasm is not appropriately treated with narcotics. Muscle relaxers such as Soma, Flexeril or Skelaxin can be used along with Tylenol ES. 4. Remember that we all live with some "aches and pains". This is not unusual or uncommon after an injury or as we get older. a. Back pain is expected and may include muscle spasms for 4 to 6 weeks after surgery. The pain should gradually improve. If the pain worsens for no apparent reason, please contact the office. b. Intermittent leg pain may also be experienced and should not be concerned about unless it worsens for no apparent reason. If so, please contact the office. 5. We will provide appropriate medication within the normal guidelines of their prescribed use. We will also be very cautious and aware of potential abuse and extended duration of patients' medication needs. a. Pain medications are for your comfort and to assist with sleep and rest so that the tissue can heal. They are not provided in order to return to normal activity and should not be used through the day. To do so or worsening pain at night can result from ongoing tissue damage and development of tolerance to the prescribed medicine. 6. Please allow 2-3 days to process refills. Prescriptions will not be mailed but must be picked up at the office. FOLLOW UP VISIT: Keep your scheduled follow-up appointment. Any questions, please call the office at . Pending Studies at Discharge: No Stand-Alone Forms: My [employer], Opioid Pain Management, Smoking Cessation Medications and DC Order Prescriptions: New tramadol 50 mg tablet 50 mg PO Q6H PRN (Reason: pain, moderate) Qty: 30 RF: 0 oxycodone 5 mg tablet 5 mg PO Q6H PRN (Reason: pain, severe) Qty: 20 RF: 0 Continued multivitamin Tablet 1 tab PO QPM RF: 0 atorvastatin 80 mg Tablet 80 mg PO PM RF: 0 gabapentin 600 mg Tablet 600 mg PO HS RF: 0 aspirin [Aspir-81] 81 mg Tablet,Delayed Release (Dr/Ec) 81 mg PO HS RF: 0 tamsulosin 0.4 mg Capsule 0.8 mg PO HS RF: 0 ramipril 5 mg Capsule 5 mg PO QAM RF: 0 omeprazole 20 mg Tablet,Delayed Release (Dr/Ec) 20 mg PO QAM RF: 0 prednisone 5 mg Tablet 5 mg PO DAILY RF: 0 Discontinued ibuprofen [Advil] 200 mg Tablet 400 mg PO Q6H PRN (Reason: Pain) RF: 0 Discharge Orders: Discharge Order (Routine); Ordered 01/07/20 Ordered By: Albert Bedoya/Other Patient Handouts: Discharge Instructions Caring for Your Oleg Diaz Drainage Tube Admission Data Admit Date/Time: 01/05/20 12:28 Attending Provider: Albert Alston Admit Provider: Albert Alston Primary Care Provider: Td Banks I. Other Providers: Alexa Juan ; Curly Recio ; Nate Hanna Other Interventions: Discharge Summary Assessment (RN) Last Done: 01/07/20 11:24
== END 2020-01-07 13:28 | disposition home health service (06) | DRG 454 ==
LOC: ASU 07:25 → 3E 12:28

== ENCOUNTER 2021-03-22 08:43 | Inpatient (IN) ==
--- NOTE | 2021-03-16 09:46 | Anesthesiology Consultation ---
Date of Service March 16, 2021 Assessment & Plan (1) Encounter for pre-operative examination: - anesthesia record 01/05/2020. T12-L1 decompression, T11-L1 fusion. Elective glidescope, ETT 8.0. No significant issues noted on anesthesia record and progress note. - surgeon requested cardiac clearance. Patient saw Raudel [facility] cardiology 03/10/2021. Impression: 1. CAD s/p CT 05/25/2003 PCI LAD ANTONIO x 2 with PTCA to D1. 30% lesions in LCx and RCA. 2. Dyslipidemia. 3. HTN. "Mr. Christianson is cleared for his upcoming procedure on 03/22/2021. He is asymptomatic from a cardiac perspective. Able to exert himself this past summer >4 METS with prolonged activity as noted above without any cardiac symptoms. He will continue his above cardiac medications. Return 1 year." - COVID screening: Per assessment on 03/16/2021: Travel screen negative, no known COVID-19 positive contacts or current COVID-19 related symptoms. Surgeon arranging preop COVID testing, scheduled 03/18/2021. Awaiting results. Chart Review Chart Review: Acceptable Risk for Surgery and Patient NOT seen in Pre Admission Testing History Surgery Operation Date: 03/22/21 10:05 Proposed Procedures p T8-T10 Decompression Fusion, Spinal Cord Monitoring - Albert Alston DO Height/Weight Height: 5 ft 10.5 in Weight: 97.522 kg Allergies Allergy/AdvReac Type Severity Reaction Status Date / Time metoprolol Allergy Intermediate LOW HEART Verified 03/16/21 08:48 RATE morphine AdvReac Mild NAUSEA Verified 03/16/21 08:48 Medications Home Medications Medication Instructions Recorded Confirmed Last Taken aspirin 81 mg tablet,delayed 81 mg PO HS 12/16/19 03/16/21 01/04/20 21:00 release (Aspir-) atorvastatin 80 mg tablet 80 mg PO PM 12/16/19 03/16/21 01/04/20 21:00 gabapentin 600 mg tablet 600 mg PO HS 12/16/19 03/16/21 01/04/20 21:00 multivitamin 1 tab PO QPM 12/16/19 03/16/21 01/04/20 08:00 omeprazole 20 mg tablet,delayed 20 mg PO QAM 12/16/19 03/16/21 01/04/20 08:00 release ramipril 5 mg capsule 5 mg PO QAM 12/16/19 03/16/21 01/05/20 05:00 tamsulosin 0.4 mg capsule 0.8 mg PO HS 12/16/19 03/16/21 01/04/20 21:00 prednisone 5 mg tablet 5 mg PO QAM 01/05/20 03/16/21 Unknown oxycodone 5 mg tablet 5 mg PO Q6H PRN #20 tab 01/07/20 03/16/21 Unknown tramadol 50 mg tablet 50 mg PO Q6H PRN #30 tab 01/07/20 03/16/21 Unknown Past Medical History Medical History CAD (coronary artery disease) S/p two ANTONIO to LAD 2002 PTCA to D1 branch in 2002 Chronic back pain Chronic steroid use Enlarged prostate GERD (gastroesophageal reflux disease) CONTROLLED AND STABLE Hiatal hernia History of kidney stones Hyperlipidemia Hypertension Myocardial Infarction 04/2003 PMR (polymyalgia rheumatica) DX'D 2014 PREDISONE DAILY- FOLLOWS WITH RHEUM- DOES HAVE PAIN FLARES - INCREASES STEROID PRN *chronic steroid therapy Past Family History Family History Grandmother (Maternal) Family history of diabetes mellitus Uncle Family history of diabetes mellitus Father Heart disease, Onset Age: 79 Mother Alzheimer disease Brother Heart disease, Onset Age: 59 Other No family history of adverse response to anesthesia Past Surgical History Surgical History Back pain with history of spinal surgery X 7 (6 LOWER BACK AND 1 CERVICAL SURGERY) H/O cervical spine surgery GOOD ROM H/O knee surgery RIGHT History of carpal tunnel release R/L History of colonoscopy History of cystoscopy WITH STENT X 2 History of esophagogastroduodenoscopy (EGD) History of heart artery stent 04/2003 MARLO BARBOZA>2 STENTS PLACED Nausea and vomiting after administration of anesthetic agent Social History Smoking Status: Former smoker tobacco type: cigarettes Do You Dip or Chew Tobacco: No Smoking End Date: >40 YEARS AGO Hx Alcohol Use: No Alcohol type: beer Hx Substance Use: No Lab Results Anesthesia Preop Results Results Anesthesia Widget: WBC 7.32 K/uL (4.8-10.8) 03/07/21 Hgb 14.4 g/dL (14.0-18.0) 03/07/21 Hct 42.8 % (42-52) 03/07/21 Plt 193 K/uL (130-400) 03/07/21 Na 139 mmol/L (136-145) 03/07/21 K 4.0 mmol/L (3.5-5.1) 03/07/21 Cl 107 mmol/L (98-107) 03/07/21 CO2 28 mmol/L (21-32) 03/07/21 BUN 20 mg/dl (7-18) H 03/07/21 Creat 1.06 mg/dl (0.6-1.4) 03/07/21 Glucose Level 89 mg/dl (70-99) 03/07/21 PT 10.3 Seconds (9.0-12.0) 03/07/21 PTT 24.1 Seconds (21.0-31.0) 03/07/21 INR 1.0 (0.9-1.1) 03/07/21 Urine Color Dark Yellow 03/07/21 Urine Appearance Clear (Clear) 03/07/21 Urine pH 5.0 (4.5-7.5) 03/07/21 Urine Specific [place] 1.026 (1.000-1.030) 03/07/21 Urine Protein Negative (Negative) 03/07/21 Urine Glucose (UA) Negative (Negative) 03/07/21 Urine Ketones Trace (Negative) H 03/07/21 Urine Blood Negative (Negative) 03/07/21 Urine Nitrite Negative (Negative) 03/07/21 Urine Bilirubin Negative (Negative) 03/07/21 Urine Urobilinogen Negative (Negative) 03/07/21 Urine Leukocyte Esterase Negative (Negative) 03/07/21 Blood Type O Positive 03/07/21 Antibody Screen NEGATIVE 03/07/21 Testing Electrocardiogram Date: 03/07/21 Sinus rhythm with marked sinus arrhythmia. Left axis deviation. No significant change was founded when compared with ECG of 12/18/2019. Reviewed and dictated by Dr. Golden Mcgovern. Chest X-Ray Date: 10/19/20 Stable radiographic appearance of chest without new consolidation. Cardiac Catheterization Date: 05/26/03 LM = angiographically normal LAD =30-80% stenosis D1= 70-80% stenosis Circumflex = 30% RCA = 20-30% EF =55%. Successful PTCA and ANTONIO x 2 to mid/mid distal LAD. Successful PTCA of ostial portion of the first diagonal branch.
--- NOTE | 2021-03-21 11:41 | History & Physical Report ---
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 Primary Care Provider: Td Banks MD This is a 70-year-old male well-known to me the presents with poor progressive worsening of left-sided rib pain. It does limit his ability to undergo activities of daily living as well as to sleep. He is undergone diagnostic therapeutic injections and is requiring surgical invention. Allergies Allergy/AdvReac Type Severity Reaction Status Date / Time metoprolol Allergy Intermediate LOW HEART Verified 03/16/21 08:48 RATE morphine AdvReac Mild NAUSEA Verified 03/16/21 08:48 Home Medications Medication Instructions Recorded Confirmed Type aspirin 81 mg tablet,delayed 81 mg PO HS 12/16/19 03/16/21 History release (Aspir-) atorvastatin 80 mg tablet 80 mg PO PM 12/16/19 03/16/21 History gabapentin 600 mg tablet 600 mg PO HS 12/16/19 03/16/21 History multivitamin 1 tab PO QPM 12/16/19 03/16/21 History omeprazole 20 mg tablet,delayed 20 mg PO QAM 12/16/19 03/16/21 History release ramipril 5 mg capsule 5 mg PO QAM 12/16/19 03/16/21 History tamsulosin 0.4 mg capsule 0.8 mg PO HS 12/16/19 03/16/21 History prednisone 5 mg tablet 5 mg PO QAM 01/05/20 03/16/21 History oxycodone 5 mg tablet 5 mg PO Q6H PRN #20 tab 01/07/20 03/16/21 Rx tramadol 50 mg tablet 50 mg PO Q6H PRN #30 tab 01/07/20 03/16/21 Rx Past Med/Surg History Medical History CAD (coronary artery disease) S/p two ANTONIO to LAD 2002 PTCA to D1 branch in 2002 Chronic back pain Chronic steroid use Enlarged prostate GERD (gastroesophageal reflux disease) CONTROLLED AND STABLE Hiatal hernia History of kidney stones Hyperlipidemia Hypertension Myocardial Infarction 04/2003 PMR (polymyalgia rheumatica) DX'D 2014 PREDISONE DAILY- FOLLOWS WITH RHEUM- DOES HAVE PAIN FLARES - INCREASES STEROID PRN Surgical History Back pain with history of spinal surgery X 7 (6 LOWER BACK AND 1 CERVICAL SURGERY) H/O cervical spine surgery GOOD ROM H/O knee surgery RIGHT History of carpal tunnel release R/L History of colonoscopy History of cystoscopy WITH STENT X 2 History of esophagogastroduodenoscopy (EGD) History of heart artery stent 04/2003 MARLO BARBOZA>2 STENTS PLACED Nausea and vomiting after administration of anesthetic agent Family History Grandmother (Maternal) Family history of diabetes mellitus Uncle Family history of diabetes mellitus Father Heart disease, Onset Age: 79 Mother Alzheimer disease Brother Heart disease, Onset Age: 59 Other No family history of adverse response to anesthesia Social History (Updated 01/05/20 @ 15:45 by Mecca Alanis PA-C) Smoking Status: Former smoker Number of Years Since Quit: 35; Second Hand Exposure: No; Hx Alcohol Use: No Hx Substance Use: No Preferred Language: Malian Communication Ability: Effective Manager Account Management Required: No Beliefs That Will Affect Care: None marital status: Current Living Situation: Spouse Feels Safe at Home: Yes Assistive Devices: Glasses Physical Exam Physical Exam: Patient is alert and oriented Heart regular in rhythm Lungs clear to auscultation
[~2021-03-22 08:43] MED LIST changes: -ACETAMINOPHEN 1000 MG/100 ML IV IV ONE; -CEFAZOLIN 2000MG 2,000 MG/15 ML SYR IV SCH; +LACTATED RINGER'S 1,000 ML IV SCH; -LR 15ML/HR IV SCH; +ceFAZolin 2000MG 2,000 MG/15 ML SYR IV SCH
[2021-03-22] MEDS ORDERED: fentaNYL citrate 100 MCG/2 ML VIAL ONE ×4 (09:32→12:23)
[2021-03-22] MEDS ORDERED: MIDAZOLAM HCL 1 MG/ML 2ML VIAL ONE (09:32)
--- NOTE | 2021-03-22 09:40 | History & Physical Bridge Note ---
Date of Service March 22, 2021 History & Physical Bridge Note I have examined the patient, reviewed the History & Physical and in the interval since the performance of the History & Physical I have noted the following changes of clinical significance: no changes noted
[2021-03-22] MEDS ORDERED: EPINEPHrine INJ 1 MG/ML AMP ONE (09:52)
[2021-03-22] MEDS ORDERED: BUPIVACAINE 0.5 % 5 MG/1 ML MPF 30ML VIAL ONE (09:53)
[2021-03-22] MEDS ORDERED: ROCURONIUM BROMIDE 10 MG/ML 5 ML VIAL IV ONE (10:38)
[2021-03-22] MEDS ORDERED: PROPOFOL IV EMULSION 10 MG/ML 20 ML VIAL IV ONE (10:38)
[2021-03-22] MEDS ORDERED: LIDOCAINE 2% 2 ML VIAL/AMP(20MG/ML) INFIL ONE (10:38)
[2021-03-22] MEDS ORDERED: ONDANSETRON INJ 2 MG/ML 2 ML VIAL ONE (10:39)
[2021-03-22] MEDS ORDERED: DEXAMETHASONE SOD INJ 4 MG/ML VIAL ONE (10:39)
[2021-03-22] MEDS ORDERED: FLOSEAL HEMOSTATIC MATRIX 10ML TOP ONE (10:40)
[2021-03-22] MEDS ORDERED: ePHEDrine sulfate 50 MG/ML SYR ONE (10:48)
--- NOTE | 2021-03-22 11:51 | Operative Report ---
Post Operative Report Pre & Post Diagnosis Operation Date: 03/22/21 10:05 Pre-Op Diagnosis: Intervertebral Disc Disorder with Radiculopathy Post-Op Diagnosis: Intervertebral Disc Disorder with Radiculopathy I identified the patient and participated in the time-out.: Yes Procedure Operation Date: 03/22/21 10:05 Actual Procedures #1 Thoracic decompression with bilateral foraminotomies T9-T10. #2 posterior spinal fusion T8-T9 and T9-T10. #3 placed posterior instrumentation T8-T9 with connectors to the previous construct. #4 placement locally harvested morselized autograft in the posterior gutters. #5 placement of his collagen sponge and master graft in the posterior lateral gutters. Surgeon Albert Alston, Racebook Writer Lissette Partida Estimated Blood Loss 75 Findings Consistent with Post-Op Diagnosis Specimens None Indications Patient presents with thoracic radiculopathy after failing extensive course of nonoperative care is here for the above-mentioned procedure. Description of Procedure Patient was met with identified informed consent obtained. Patient was then ni en to the operative suite underwent ablation placed in a prone position the Oleg table atop Xavier frame. All bony prominences well-padded eyes inspected to ensure no external pressure placed upon them. This point the thoracolumbar spine was prepped and draped in a sterile fashion. Sharp dissection with the assistance of Bovie cautery was performed down to and exposing the lamina and transverse processes of T8-T9 and the instrumentation at T10-T11. Then placed pedicle screws at T8-T9 bilaterally as well as expose the proximal umesh of the previous construct. I then performed a complete laminectomy of T9 including bilateral medial facetectomies and foraminotomies addressing all stenosis. Proper size rods were then locked into position including the connector to the proximal construct. The transverse processes of T8-T9-T10 were then burred to subcortically bone. Infuse collagen sponge master graft local autograft was placed in the posterior gutters. 15 round JACOB drain inserted. The incision was then closed with 1 Vicryl to fascia 2-0 Vicryl subcutaneously and 4 Monocryl for final skin closure. Steri-Strip sterile dressings placed. Patient will continue PACU stable condition. Please note spinal cord monitoring was utilized at the procedure no changes noted. Lastly Lissette Partida was present at the entire surgery involved the patient positioning complex portions of the s urgery and vascular closure. I attest to the content of the Intraoperative Record and any orders documented therein. Any exceptions are noted below.
[2021-03-22] MEDS ORDERED: HYDROmorphone INJ 2 MG/ML SYR/VIAL ONE (12:06)
[2021-03-22] MEDS ORDERED: ATROPINE SULFATE 0.1 MG/ML 10ML SYR IV PRN (12:20)
[2021-03-22] MEDS ORDERED: ONDANSETRON INJ 2 MG/ML 2 ML VIAL IV PRN (12:20)
[2021-03-22] MEDS ORDERED: ePHEDrine sulfate 50 MG/ML AMP IV PRN (12:20)
[2021-03-22] MEDS ORDERED: HYDROmorphone INJ 1 MG/ML SYRINGE IV PRN ×2 (12:20→13:35)
[2021-03-22] MEDS: fentaNYL citrate 100 MCG/2 ML VIAL IV PRN ×4 (12:27→12:52)
--- NOTE | 2021-03-22 12:40 | Fluoroscopy Report ---
FL thoracic spine 2V CLINICAL HISTORY: T8-10 DECOMPRESSION AND FUSION COMPARISON STUDY: None. FLUOROSCOPY TIME: 24 seconds. FINDINGS: 3 fluoroscopic spot images of the lower thoracic spine were submitted for review. Exact lev els are difficult to identify on these fluoroscopic spot images. There are pedicle screws and rods wi thin the lower thoracic spine. The hardware appears intact. IMPRESSION: Fluoroscopy provided for posterior decompression and fusion within the lower thoracic spi ne. ACT 112: Negative or not required by law. Electronically signed by: Eugenio Sheth M.D. 03/22/2021 12:39 PM
--- NOTE | 2021-03-22 13:08 | Anesthesiology Progress Note ---
Date of Service March 22, 2021 Anesthesia Post Procedure Vital Signs Vital Signs: Temp Pulse Pulse Resp BP Pulse Ox 03/22/21 13:00 56 L 15 135/73 97 03/22/21 12:50 58 L 12 154/83 H 95 03/22/21 12:40 60 14 140/70 92 03/22/21 12:30 65 20 166/87 H 95 03/22/21 12:20 62 13 163/95 H 97 03/22/21 12:10 66 13 171/99 H 95 03/22/21 12:02 96.8 F L 78 14 151/111 H 96 03/22/21 09:13 98.6 F 52 L 20 166/100 H 96 Pain Intensity Back: Pain Intensity: 6 Transfer of Care Handoff Completed per policy Notes Mental Status: alert / awake / arousable and participated in evaluation Patient Amnestic to Procedure: Yes Nausea / Vomiting: adequately controlled Pain: adequately controlled Airway Patency, RR, SpO2: stable & adequate BP & HR: stable & adequate Hydration State: stable & adequate Anesthetic Complications: no major complications apparent and Pt Satisfied with anesthetic care
[2021-03-22] MEDS ORDERED: NALOXONE HCL 0.4 MG/1 ML VIAL/CARP IV PRN (13:35)
[2021-03-22] MEDS ORDERED: PROMETHAZINE HCL 12.5 MG in SODIUM CHLORIDE 0.9% 50 ML IV PRN (13:35)
[2021-03-22] MEDS ORDERED: LORazepam 0.5 MG/1 ML VIAL IV PRN (13:35)
[2021-03-22] MEDS ORDERED: DO NOT ADMINISTER FLU VACCINE PRN (13:35)
[2021-03-22] MEDS ORDERED: ACETAMINOPHEN 1,000 MG/100 ML VIAL IV PRN (13:35)
[2021-03-22] MEDS ORDERED: FAMOTIDINE 20 MG TAB PO PRN (13:35)
[2021-03-22] MEDS ORDERED: LORazepam 0.5 MG TAB PO PRN (13:35)
[2021-03-22] MEDS ORDERED: diphenhydrAMINE Capsule 25 MG CAP PO PRN (13:35)
[2021-03-22] MEDS ORDERED: METOCLOPRAMIDE HCL INJ 5 MG/ML 2 ML VIAL IV PRN (13:35)
[2021-03-22] MEDS ORDERED: bisacodyL 10 MG SUPP PR PRN (13:35)
[2021-03-22] MEDS ORDERED: ACETAMINOPHEN 500 MG TAB PO PRN (13:35)
[2021-03-22] MEDS ORDERED: SOD PHOSPHATE/SOD BIPHOSPHATE ENEMA 132 ML BTL PR PRN (13:35)
[2021-03-22] MEDS ORDERED: hydrOXYzine HCl 25 MG TAB PO PRN (13:35)
[2021-03-22] MEDS ORDERED: HYDROmorphone INJ 0.5 MG/0.5 ML SYR IV PRN (13:35)
[2021-03-22] MEDS ORDERED: MAGNESIUM HYDROXIDE SUSP 30 ML UDC PO PRN (13:35)
[2021-03-22] MEDS ORDERED: ALUMINUM/MAGNESIUM SUSP 30 ML UDC PO PRN (13:35)
[2021-03-22] MEDS ORDERED: ONDANSETRON 4 MG OD TAB PO PRN (13:35)
[2021-03-22] MEDS ORDERED: DO NOT ADMINISTER PNEUMOCOCCAL VACCINE PRN (13:35)
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
[2021-03-22] MEDS: LACTATED RINGER'S 1,000 ML IV SCH ×2 (14:18→20:16)
[2021-03-22] MEDS: oxyCODONE HCL IR 5 MG TAB (IMMEDIATE RELEASE) PO PRN ×2 (15:41→20:16)
[2021-03-22] MEDS ORDERED: COUGH DROP (SUGAR FREE) LOZ 24 LOZ/1 BOX BUCCAL PRN (15:47)
[2021-03-22] MEDS: ceFAZolin 2000MG 2,000 MG/15 ML SYR IV SCH (18:20)
[2021-03-22] MEDS: dexAMETHasone 6 MG in SYRINGE 0 ML IV SCH (18:21)
[2021-03-22] MEDS: ONDANSETRON INJ 2 MG/ML 2 ML VIAL IV PRN (19:17)
[2021-03-22] MEDS: ATORVASTATIN 40 MG TAB PO SCH (20:17)
[2021-03-22] MEDS: DOCUSATE SODIUM/SENNA 50/8.6MG TAB PO SCH (20:17)
[2021-03-22] MEDS: ASPIRIN 81 MG ECTAB PO SCH (20:17)
[2021-03-22] MEDS: MULTIVITAMIN TAB PO SCH (20:18)
[2021-03-22] MEDS: TAMSULOSIN HCL 0.4 MG CAP PO SCH (20:18)
[2021-03-22] MEDS: GABAPENTIN 100 MG CAP PO SCH (20:30)
[2021-03-22] MEDS ORDERED: GABAPENTIN 600 MG TAB PO SCH (21:00)
[2021-03-23] MEDS: ceFAZolin 2000MG 2,000 MG/15 ML SYR IV SCH (02:41)
[2021-03-23] MEDS: dexAMETHasone 6 MG in SYRINGE 0 ML IV SCH ×2 (02:42→11:03)
[2021-03-23] MEDS: ONDANSETRON INJ 2 MG/ML 2 ML VIAL IV PRN (02:47)
[2021-03-23] MEDS: POLYETHYLENE (MIRALAX) 17 GM PACK PO SCH ×4 (05:23→23:30)
[2021-03-23 06:11] LABS: Hematocrit (blood only) 42.5 % (42-52); Hemoglobin 14.5 g/dL (14.0-18.0); Immature Granulocytes # (auto) 0.03 K/uL (0.00-0.02); Immature Granulocytes % (auto) 0.2 %; Lymphocytes # (auto) 0.58 K/uL (1.2-3.4); Lymphocytes % (auto) 4.6 %; Mean Corpuscular Hgb Conc 34.1 g/dL (32-36); Mean Corpuscular Volume 93.8 fL (80-100); Mean Platelet Volume 8.4 fL (7.4-10.4); Monocytes # (auto) 0.53 K/uL (0.11-0.59); Monocytes % (auto) 4.2 %; Platelet Count 201 K/uL (130-400); RDW Coefficient of Variation 13.2 % (11.5-14.5); RDW Standard Deviation 45.2 fL (36.4-46.3); Red Blood Count 4.53 M/uL (4.7-6.1); White Blood Count 12.64 K/uL (4.8-10.8)
[2021-03-23 06:51] LABS: BUN Creatinine Ratio 9.8 (10-20); Calcium 9.3 mg/dl (8.5-10.1); Est GFR (African American) 66.7 ml/min; Est GFR (Non-African American) 57.6 ml/min; Potassium 4.5 mmol/L (3.5-5.1)
[2021-03-23 07:14] VITALS: TEMP 98.1
[2021-03-23] MEDS: PANTOprazole 40 MG TAB PO SCH (07:53)
[2021-03-23] MEDS: ENALAPRIL MALEATE 10 MG TAB PO SCH (07:53)
--- NOTE | 2021-03-23 08:09 | Orthopedic Progress Note ---
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 Admission and Anticipated Discharge Date Admission Date: March 22, 2021 Subjective Back pain controlled rib symptoms markedly improved Physical Exam Physical Exam: Patient is walking in his room. Is good strength testing. Appears comfortable. Results & Data ([facility]) Vital Signs (Past 12 Hours) Vital Signs Temp Pulse Pulse Resp BP BP Pulse Ox 03/23/21 07:13 36.7 C 51 L 16 175/97 H 97 03/23/21 02:43 36.6 C 73 16 180/109 H 97 03/22/21 23:00 36.5 C 60 16 165/95 H 91 03/22/21 20:15 165/81 H
[2021-03-23] MEDS: predniSONE 5 MG TAB PO SCH (11:02)
--- NOTE | 2021-03-23 12:08 | Hospitalist Progress Note ---
Date of Service March 23, 2021 Assessment & Plan (1) S/P spinal surgery: Plan: - POD#1 T8-T10 decompression and fusion by Dr. Alston - activity and wound care orders as per ortho - pain control with bowel regimen - PT/OT - monitor H/H for acute blood loss anemia and transfuse blood products PRN - EBL 75 cc, Hgb stable at 14.5 (2) CAD (coronary artery disease): Plan: -History of PCI with stent LAD x2 in 2002 -Continue ASA, statin, LITO inhibitor -Appears stable (3) Hypertension: Plan: -BP elevated, may be due to pain -Continue LITO inhibitor, monitor throughout the day, provide additional antihypertensive if needed (4) PMR (polymyalgia rheumatica): Plan: -Continue chronic prednisone 5 mg daily -Also received dexamethasone (5) Hyperlipidemia: Plan: -Continue statin (6) DVT prophylaxis: Plan: -TEDs/SCDs as per spine Ortho Thank you for this consultation. We will follow the patient with you during their hospital stay. You can reach a member of the [facility] Hospitalist Team 15/01 via the [facility] Hospitalist role in [place] Text. Admission and Anticipated Discharge Date Admission Date: March 22, 2021 Supervising Physician Co-Signing Physician Notes History and physical exam performed by me Patient reports only some pain at surgical site which is well controlled. Yet to move bowels. Physical exam notable for clean dressing over surgical site with drain in situ draining serosanguineous fluid. Patient is postop day 1 for T8-T10 decompression and fusion. Pain is controlled Continue to monitor drainage Hemoglobin is stable Continue home antihypertensive Continue home prednisone Agree with other plans as detailed by Zayda COTTER Subjective Patient seen and examined.Resting in bed. Reports pain is well controlled. Denies chest pain and shortness of breath. No lightheadedness or dizziness. Voiding without difficulty. No flatus or BM. Denies abdominal pain or nausea. Physical Exam Constitutional: WD/WN, vitals as above Respiratory: normal respiratory effort, lungs clear to auscultation Cardiovascular: Rate/Rhythm: regular rate and regular rhythm Vessels: normal peripheral pulses Extremities: no edema Gastrointestinal (Abdomen): Inspection/Auscultation: normal bowel sounds Percussion/Palpation: abdomen soft; abdomen nontender Musculoskeletal: S/p back surgery, drain in place draining bloody drainage, pedal pushes and pull strong bilaterally Skin: no rashes, warm and dry Neurologic: no focal motor deficits Psychiatric: A+Ox3, euthymic affect Results & Data Results & Data ([facility]) Vital Signs (Past 12 Hours) Vital Signs Temp Pulse Pulse Resp BP BP Pulse Ox 03/23/21 07:13 36.7 C 51 L 16 175/97 H 97 03/23/21 02:43 36.6 C 73 16 180/109 H 97 Laboratory Results Short CBC 03/23/21 Range/Units 06:02 WBC 12.64 H (4.8-10.8) K/uL Hgb 14.5 (14.0-18.0) g/dL Hct 42.5 (42-52) % Plt Count 201 (130-400) K/uL BMP 03/23/21 06:02 Sodium 135 L Potassium 4.5 Chloride 104 Carbon Dioxide 27 BUN 12 Creatinine 1.25 Glucose 152 H Calcium 9.3
[2021-03-23] MEDS: traMADol HCL 50 MG TABLET PO PRN ×2 (14:52→21:15)
[2021-03-23] MEDS: TAMSULOSIN HCL 0.4 MG CAP PO SCH (20:40)
[2021-03-23] MEDS: MULTIVITAMIN TAB PO SCH (20:40)
[2021-03-23] MEDS: GABAPENTIN 100 MG CAP PO SCH (20:40)
[2021-03-23] MEDS: ASPIRIN 81 MG ECTAB PO SCH (20:41)
[2021-03-23] MEDS: ATORVASTATIN 40 MG TAB PO SCH (20:41)
[2021-03-23] MEDS: DOCUSATE SODIUM/SENNA 50/8.6MG TAB PO SCH (20:41)
[2021-03-24] MEDS: POLYETHYLENE (MIRALAX) 17 GM PACK PO SCH ×2 (05:39→13:23)
[2021-03-24 07:19] LABS: Hematocrit (blood only) 38.8 % (42-52); Hemoglobin 12.8 g/dL (14.0-18.0)
[2021-03-24 08:02] VITALS: O2SAT 95
--- NOTE | 2021-03-24 08:14 | Discharge Summary ---
Date of Service March 24, 2021 Admission HPI Per Admitting Provider This is a 70-year-old male well-known to me the presents with poor progressive worsening of left-sided rib pain. It does limit his ability to undergo activities of daily living as well as to sleep. He is undergone diagnostic therapeutic injections and is requiring surgical invention. Admission Exam (Per Admitting) Constitutional WD/WN, vitals as above Eyes normal visual scruggs by confrontation Neck normal visual inspection Respiratory normal respiratory effort Cardiovascular Extremities: normal capillary refill Gastrointestinal (Abdomen) Inspection/Auscultation: abdomen normal to inspection and + abdomen distended Musculoskeletal no cyanosis or clubbing, extremities motor strength 5/5 Extremities: extremities normal to inspection and strength 5/5 throughout Skin no rashes, warm and dry Neurologic normal touch/pain/proprioception and moves all extremities Discharge Data Consultations 03/22/21 13:35 Consult Hospitalist Routine Procedures Performed Operation Date: 03/22/21 10:05 Actual Procedures p T8-T10 Decompression and Fusion, Spinal Cord Monitoring(Not Applicable) - Albert Alston DO Hospital Course (1) 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 He is making great progress in physical therapy. Denies radicular lower extremity pain or numbness or weakness. He is passing flatus but no bowel movement. JACOB drain output last shift was 30 cc. H&H are stable this morning at 12.8 and 38.8 respectively. No other complaints. Denies headaches, shortness of breath, chest pain. Supervising Physician Co-Signing Physician Notes History and physical exam performed by me Patient reports only some pain at surgical site which is well controlled. Yet to move bowels. Physical exam notable for clean dressing over surgical site with drain in situ draining serosanguineous fluid. Patient is postop day 1 for T8-T10 decompression and fusion. Pain is controlled Continue to monitor drainage Hemoglobin is stable Continue home antihypertensive Continue home prednisone Agree with other plans as detailed by Zayda COTTER
[2021-03-24] MEDS ORDERED: MAGNESIUM CITRATE 296 ML/BTL ONE (08:15)
[2021-03-24] MEDS: predniSONE 5 MG TAB PO SCH (08:27)
[2021-03-24] MEDS: ENALAPRIL MALEATE 10 MG TAB PO SCH (08:27)
[2021-03-24] MEDS: PANTOprazole 40 MG TAB PO SCH (08:27)
[2021-03-24] MEDS ORDERED: MAGNESIUM CITRATE 296 ML/BTL PO STA (08:36)
[2021-03-24] MEDS: ONDANSETRON INJ 2 MG/ML 2 ML VIAL IV PRN (08:43)
[2021-03-24] MEDS ORDERED: dexAMETHasone 8 MG in SYRINGE 0 ML IV SCH (09:00)
[2021-03-24] MEDS: traMADol HCL 50 MG TABLET PO PRN (09:10)
--- NOTE | 2021-03-24 10:09 | Hospitalist Progress Note ---
Date of Service March 24, 2021 Assessment & Plan (1) S/P spinal surgery: Plan: - POD#2 T8-T10 decompression and fusion by Dr. Alston - activity and wound care orders as per ortho - pain control with bowel regimen - PT/OT - monitor H/H for acute blood loss anemia and transfuse blood products PRN - EBL 75 cc, Hgb stable at 12.8 (2) CAD (coronary artery disease): Plan: -History of PCI with stent LAD x2 in 2002 -Continue ASA, statin, LITO inhibitor -Appears stable (3) Hypertension: Plan: -BP elevated, may be due to pain -Continue LITO inhibitor, monitor throughout the day, provide additional antihypertensive if needed (4) PMR (polymyalgia rheumatica): Plan: -Received dexamethasone pre-operatively -Continue chronic prednisone 5 mg daily (5) Hyperlipidemia: Plan: -Continue statin (6) DVT prophylaxis: Plan: -TEDs/SCDs as per spine Ortho Patient seen in collaboration with Dr. Patel. Please see addendum. Thank you for this consultation. We will follow the patient with you during their hospital stay. You can reach a member of the [facility] Hospitalist Team 15/01 via the [facility] in [place] Text. Admission and Anticipated Discharge Date Admission Date: March 22, 2021 Supervising Physician Co-Signing Physician Notes History and physical exam performed by me Patient reports only some pain at surgical site which is well controlled. Yet to have BM Physical exam notable for clean dressing over surgical site with drain in situ draining serosanguineous fluid. Patient is postop day 2 for T8-T10 decompression and fusion. Pain is controlled Continue to monitor drainage Hemoglobin is stable Continue home antihypertensive Patient reported h/o significant post op opioid induced constipation in the past that required movantik Will give one dose of methylnaltrexone Agree with other plans as detailed by Zulma Dong PA-C Subjective Patient seen and examined in 314-1. Reporting some surgical site pain after ambulation but otherwise feeling well. Tolerating diet well, no nausea or vomiting. Denies fever, chills, lightheadedness, chest pain or SOB. No abdominal pain. Urinating without issue. + Flatus, no BM yet. Review of Systems Review of Systems: At least ten systems reviewed and negative except as noted in the HPI. Physical Exam Physical Exam: General Appearance: WD/WN, vitals as above, NAD, sitting up in bed, pleasant, conversing easily Head: normocephalic, atraumatic Eyes: normal inspection, PERRL, conjunctivae normal, anicteric sclerae ENT: external ear and nose normal, oropharynx normal Neck: normal visual inspection, trachea midline, no thyromegaly Respiratory: normal respiratory effort, lungs clear to auscultation, no wheeze, rales, rhonchi. No accessory muscle use Cardiovascular: regular rate, rhythm, no murmur, normal peripheral pulses, no BLE edema. Vessels: no JVD Abdomen/GI: normal bowel sounds, soft, nontender, no hepatosplenomegaly Extremities/Musculoskeletal: Spinal dressing c/d/i. JACOB drain with minimal output. No cyanosis or clubbing, extremities motor strength 5/5 Neurologic: PERRL, CN's II-XI intact bilaterally and moves all extremities Psychiatric: A+Ox3, euthymic affect Skin: no rashes, normal color, warm/dry Results & Data Results & Data ([facility]) Vital Signs (Past 12 Hours) Vital Signs Temp Pulse Resp BP Pulse Ox 03/24/21 08:01 36.7 C 59 L 16 146/83 H 95 03/23/21 22:38 36.7 C 58 L 16 158/84 H 94 Laboratory Results Short CBC 03/24/21 Range/Units 06:44 Hgb 12.8 L (14.0-18.0) g/dL Hct 38.8 L (42-52) % Diagnostic Findings Thoracic Spine X-Ray 03/22/21 10:05 FL thoracic spine 2V CLINICAL HISTORY: T8-10 DECOMPRESSION AND FUSION COMPARISON STUDY: None. FLUOROSCOPY TIME: 24 seconds. FINDINGS: 3 fluoroscopic spot images of the lower thoracic spine were submitted for review. Exact levels are difficult to identify on these fluoroscopic spot images. There are pedicle screws and rods within the lower thoracic spine. The hardware appears intact. IMPRESSION: Fluoroscopy provided for posterior decompression and fusion within the lower thoracic spine. ACT 112: Negative or not required by law. Electronically signed by: Eugenio Sheth M.D. 03/22/2021 12:39 PM
[2021-03-24] MEDS ORDERED: METHYLNALTREXONE BROMIDE 12 MG/0.6 ML VIAL SQ ONE (13:48)
[2021-03-24 15:46] VITALS: BP 180/109; PULSE 57
== END 2021-03-24 17:28 | disposition home or self-care (01) | DRG 460 ==
LOC: ASU 08:43 → 3E 11:54
DX: Z95.5 Presence of coronary angioplasty implant and graft; K21.9 Gastro-esophageal reflux disease without esophagitis; I25.10 Atherosclerotic heart disease of native coronary artery without angina pectoris; Z83.3 Family history of diabetes mellitus; M35.3 Polymyalgia rheumatica; Z88.8 Allergy status to other drugs, medicaments and biological substances; Z87.891 Personal history of nicotine dependence; Z88.5 Allergy status to narcotic agent; M47.24 Other spondylosis with radiculopathy, thoracic region; N40.0 Benign prostatic hyperplasia without lower urinary tract symptoms; I25.2 Old myocardial infarction; Z79.82 Long term (current) use of aspirin